=== PATIENT | male | born 1985 | race Caucasian/White ===

== ENCOUNTER 2016-08-01 23:40 | Emergency (ER) | payer SELFPAY ==
[2016-08-02 00:35] VITALS: BP 131/78
== END 2016-08-02 00:37 | disposition home or self-care (01) ==
LOC: ED 23:40
DX: S01.112D Laceration without foreign body of left eyelid and periocular area, subsequent encounter (principal); T24.202D Burn of second degree of unspecified site of left lower limb, except ankle and foot, subsequent encounter; T24.102D Burn of first degree of unspecified site of left lower limb, except ankle and foot, subsequent encounter; X08.8XXD Exposure to other specified smoke, fire and flames, subsequent encounter